=== PATIENT | female | born 1945 | race Caucasian/White ===

== ENCOUNTER 2016-09-12 11:55 | Inpatient (IN) | payer MEDICARE ==
--- NOTE | ~2016-09-12 | HP ---
Unit #: [id number] #: [id number] Patient: MICHAEL MORENO [id number] [address] [address] [id number] I MR#: [id number] NAME: MICHAEL MORENO ROOM: 62417 Age: 70 Sex: F Admission Date: 09/12/2016 : 1945 Attending Physician: Ami Carvajal M.D. Primary Care Physician: Primary Care Physician No HISTORY AND PHYSICAL CHIEF COMPLAINT Nausea, vomiting, and diarrhea. HISTORY OF PRESENT ILLNESS The patient is a 70-year-old female with the past medical history of diabetes, depression, hypertension, hyperlipidemia, deep vein thrombosis, chronic anticoagulation, breast cancer, who presented to the emergency room with the nausea and vomiting since Thursday. The patient stated the patient has been having nausea and vomiting with decreased oral intake since Thursday. The patient started to notice the bloody stool since yesterday and that made her to come to the emergency room. The patient was found to be in DKA with the sugars of 539 with a gap of 26. The patient had a CT of the abdomen and pelvis that showed the segmental inflammation at the junction of the hepatic flexure and transverse colon consistent with focal colitis. The patient has been admitted for the above reasons. The patient denies any fever or chills but complained of the nausea and denies any missing of the home medications. PAST MEDICAL HISTORY 1. History of diabetes with peripheral neuropathy. 2. Charcot foot, right, status post wuocf-yje-bjpq amputation. 3. Depression. 4. Hypertension. 5. Hyperlipidemia. 6. Deep vein thrombosis. 7. Breast cancer, status post lumpectomy and radiation treatment. PAST SURGICAL HISTORY 1. Left third toe amputation. 2. Breast lumpectomy. 3. Bilateral knee surgery. 4. Incision and drainage of the right foot. 5. Status post BKA of the right foot and the hysterectomy. HOME MEDICATIONS 1. Avalide. 2. Cymbalta. 3. Norvasc. 4. Lipitor. 5. Levemir. 6. NovoLog. ALLERGIES TIFFANIE inhibitors. Unit #: [id number] #: [id number] Patient: MICHAEL MORENO SOCIAL HISTORY The patient lives alone. No history of tobacco, alcohol or illicit drug abuse. CODE STATUS Her code status is FULL CODE. FAMILY HISTORY Notable for mother having diabetes. REVIEW OF SYSTEMS A 14-point review of systems performed and only pertinent positive findings are described above, remaining are negative. PHYSICAL EXAMINATION VITAL SIGNS: Temperature 97.5, pulse 120, respiratory rate 18, blood pressure 169/94, saturating 99% at room air. GENERAL: Patient is lying on the bed not in acute distress. HEENT: Atraumatic, normocephalic. Pupils equal, round, and reactive to light and accommodation. Dry mucous membrane. NECK: Supple. No JVD. LUNGS: Clear to auscultation bilaterally. No rhonchi, no wheezing. HEART: Regular rate and rhythm. ABDOMEN: Soft, positive bowel sounds. Minimal discomfort at the left lower quadrant. No rigidity, no guarding. EXTREMITIES: Status post right hdmdn-pks-ltun amputation. NEUROLOGIC: Alert, awake, oriented. DIAGNOSTIC STUDIES LABORATORY: Glucose 539, BUN 46, creatinine 1.6, sodium 128, potassium 4.2, chloride 92, bicarb 20, calcium 8.5, total protein 6.9, albumin 3.4, total bilirubin 0.9, AST 16, ALT 14, alkaline phosphatase 120. Lipase 22. INR 0.9. WBC 23, hemoglobin 13.9, hematocrit 43.4, platelets 362, neutrophils 91.9. UA shows trace leukocyte esterase, 2+ blood, 200-300 urine wbc's, 4+ urine bacteria. IMAGING: CT of the abdomen and pelvis shows focal colitis. ASSESSMENT AND PLAN 1. Diabetic ketoacidosis. 2. Sepsis. 3. Focal colitis. 4. Urinary tract infection. PLAN 1. Admit patient to inpatient with ICU. 2. Continue the DKA protocol. 3. IV antibiotics with Rocephin and Flagyl and sepsis protocol. 4. Continue with insulin drip. 5. Repeat labs again in the morning. 6. Further recommendations will follow as more lab results become available. Dictated by Ami Carvajal M.D. Unit #: [id number] #: [id number] Patient: MICHAEL MORENO ANABELLA/miranda TD: 09/12/2016 17:55 JOB #: [id number] HISTORY AND PHYSICAL X X HISTORY AND PHYSICAL
--- NOTE | ~2016-09-12 | CT4 ---
[facility] A Service of [facility] RADIOLOGY TEXT RESULTS PATIENT: MICHAEL MORENO LOCATION: CICCU2 CICCU2-12 : 46 UNIT #: [id number] AGE: [address]: PARTH PAN MD SEX: F ORDER DR: [id number] [facility] [address] [facility]. [place], [place] [address] [id number] I MR#: [id number] Acc #: [id number] NAME: MICHAEL MORENO : 1945 SEX: F STUDY DATE/TIME: 09/12/2016 14:40 UNIT: CEDOF ROOM: 67871 STUDY DESCRIPTION: CT Abd and Pelv Wo Cont Attending Physician: Parth Pan M.D. Ordering Physician: [facility] MEDICAL IMAGING REPORT This report is preliminary unless electronic signature is present EXAM CT abdomen and pelvis without contrast INDICATIONS Nausea, vomiting, diarrhea since 09/11/2016. TECHNIQUE This CT exam was performed with one or more of the following radiation dose reduction techniques: automatic exposure control, adjustment of mA and/or kV according to patient size, and iterative reconstruction. FINDINGS ABDOMEN WITHOUT CONTRAST: The included lung bases are clear. ABDOMEN WITH CONTRAST: The liver, spleen, kidneys and adrenal glands, pancreas, gallbladder unremarkable. There is a segment of abnormal thickening and mild surrounding inflammatory change in the hepatic flexure and proximal to mid-transverse colon. No evidence for abscess or obstruction. PELVIS WITHOUT CONTRAST: Previous hysterectomy. No pelvic mass or fluid. There is a small focus of air in the bladder. Correlate with recent manipulation. No aggressive appearing bone lesion. IMPRESSION 1. Segmental, mild inflammatory change involving the hepatic flexure and proximal to mid-transverse colon, most in keeping with focal colitis. Correlate with the patient's symptoms. 2. No acute findings seen elsewhere in the abdomen or pelvis. Dictated by... Delio Andrade M.D. [facility] A Service of [facility] RADIOLOGY TEXT RESULTS PATIENT: MICHAEL MORENO LOCATION: CICCU2 CICCU2-12 : 46 UNIT #: [id number] AGE: [address]: PARTH PAN MD SEX: F ORDER DR: THIS IS AN ELECTRONICALLY VERIFIED REPORT Delio Andrade M.D. at 09/13/2016 3:04 PM EED/pcl TD: 09/12/2016 17:34 JOB #: [id number] MEDICAL IMAGING REPORT COPY
--- NOTE | ~2016-09-12 | CO ---
Unit #: [id number] #: [id number] Patient: MICHAEL MORENO [id number] [address] [address] [id number] I MR#: [id number] NAME: MICHAEL MORENO ROOM: 228 Age: 70 Sex: F Admission Date: 09/12/2016 : 1945 Attending Physician: Daysi Rasmussen M.D. Primary Care Physician: Primary Care Physician No Consultation Date: 09/14/2016 CONSULTATION REPORT REASON FOR CONSULTATION Management of diabetes mellitus. HISTORY OF PRESENT ILLNESS A 70-year-old white female, who has history of type 2 diabetes mellitus and depression, who presented to the emergency room with nausea, abdominal pain, and vomiting. She is being treated currently for the acute colitis of the hepatic flexure and transverse colon. On her arrival, her blood sugars were very high. Her blood glucose level was above 500. She was also hyponatremic and she had mild acute kidney injury with creatinine of 1.6. She was started on insulin drip, which was subsequently discontinued and the patient was transferred to the floor with the subcu insulin. I am seeing the patient today. PAST MEDICAL HISTORY 1. Type 2 diabetes mellitus, which is poorly controlled. A1c is above 12%. Charcot foot. 2. History of post below-knee amputations, depression, hypertension, hyperlipidemia, DVT anticoagulation therapy. 3. History of diabetic peripheral neuropathy, history of breast cancer, history of breast lumpectomy and radiation treatment. PAST SURGICAL HISTORY Left third toe amputation, BKA, hysterectomy, breast surgery, bilateral knee surgeries. HOME MEDICATIONS List is reviewed. Levemir 40 units daily, NovoLog about 20 to 25 units each meal, Avalide, Cymbalta, Norvasc. ALLERGIES To TIFFANIE inhibitors. SOCIAL HISTORY The patient lives alone. No history of tobacco use or alcohol. FAMILY HISTORY Notable for diabetes in the mother. REVIEW OF SYSTEMS A 12-point review of systems completed and is unremarkable except as noted in HPI. The patient has been complaining of some diarrhea and nausea at this point. No abdominal pain. Unit #: [id number] #: [id number] Patient: MICHAEL MORENO PHYSICAL EXAMINATION GENERAL: She looks comfortable in no acute distress. VITAL SIGNS: Temperature 97.9, pulse 104, respirations 18, blood pressure 136/75. HEENT: EOMI. Pupils equally reactive to light. NECK: Supple. No thyromegaly noted. CHEST: Good air entry. CVS: Regular rhythm. No murmurs. ABDOMEN: Soft and nontender. Bowel sounds positive. EXTREMITIES: He has BKA. DIAGNOSTIC STUDIES LABORATORY RESULTS: Today, creatinine is 1.3, sodium 134, CO2 is 18. A1c 12.6. ASSESSMENT 1. Type 2 diabetes mellitus, poorly controlled. 2. Depression. 3. Acute colitis. PLAN We will increase the patient's Accu-Chek log reviewed. We will increase the Levemir to 25 units daily in the morning. Continue supplemental insulin as needed. The patient has not been eating much due to the nausea as the patient's p.o. intake, increase premeal insulin. Continue to follow the patient for further management. Dictated by... Latasha Salvador/sophia TD: 09/15/2016 02:36 JOB #: [id number] CONSULTATION REPORT X Neo Davison MD CONSULTATION REPORT
--- NOTE | ~2016-09-12 | CR63 ---
[facility] A Service of [facility] RADIOLOGY TEXT RESULTS PATIENT: MICHAEL MORENO LOCATION: [place] [address]-12 : [birth year] UNIT #: [id number] AGE: [address]: PARTH CARVAJAL MD SEX: F ORDER DR: [id number] [facility] [address] [facility]. [place], [place] [address] [id number] I MR#: [id number] Acc #: [id number] NAME: MICHAEL MORENO : 1945 SEX: F STUDY DATE/TIME: 09/12/2016 18:30 UNIT: [facility] ROOM: [facility] STUDY DESCRIPTION: CR Chest 2 View Attending Physician: Parth Carvajal M.D. Ordering Physician: Sam Lagunas M.D. MEDICAL IMAGING REPORT This report is preliminary unless electronic signature is present EXAM Chest x-ray 09/12/2016 HISTORY 70-year-old female in the ED complaining of 4-day history of congestion, nausea and vomiting. TECHNIQUE AP and lateral upright chest series. FINDINGS Heart size and pulmonary the heart size and pulmonary vascularity are normal. The lungs are expanded and clear. No visible pulmonary infiltrate or pleural effusion. IMPRESSION No active disease. Dictated by... Vince Olguin M.D. THIS IS AN ELECTRONICALLY VERIFIED REPORT Vince Olguin M.D. at 09/13/2016 3:01 PM RICHIE/adilene TD: 09/12/2016 23:49 JOB #: [id number] MEDICAL IMAGING REPORT COPY
--- NOTE | ~2016-09-12 | DS ---
Unit #: [id number] #: [id number] Patient: MICHAEL MORENO [id number] [address] [address] [id number] I MR#: [id number] NAME: MICHAEL MORENO ROOM: 228 Age: 70 Sex: F Admission Date: 09/12/2016 : 1945 Discharge Date: 09/15/2016 Attending Physician: Daysi Rasmussen M.D. Primary Care Physician: No Primary Care Physician DISCHARGE SUMMARY PRINCIPAL DIAGNOSIS 1. Diabetic ketoacidosis. 2. Acute kidney injury, prerenal. 3. Klebsiella pneumonia urinary tract infection for which the patient has completed antibiotics. 4. Sepsis secondary to colitis. 5. Hypokalemia. 6. Hypophosphatemia. 7. Chronic kidney disease stage 3 with baseline creatinine approximately 1.5. 8. Non-anion gap metabolic acidosis secondary to diarrhea. 9. Diabetes mellitus type 2. Insulin requiring and uncontrolled with hemoglobin A1c of 12.6. 10. Moderate protein malnutrition. 11. Diabetic peripheral neuropathy. 12. Depression. 13. Hyperlipidemia. 14. Prior history of DVT. 15. History of breast cancer, status post lumpectomy and radiation. 16. Iron deficiency anemia. CONSULTANTS Dr. Davison, endocrinology. DIAGNOSTIC DATA IMAGING: CT scan of the abdomen and pelvis without contrast on 09/12/2016 with mild inflammatory changes involving the hepatic flexure and proximal to mid transverse colon. Chest x-ray on 09/12/2016 with no acute findings. HISTORY/HOSPITAL COURSE Ms. Moreno is a very nice 70-year-old female who presented to the emergency department with intractable nausea, vomiting and diarrhea. Please refer to history and physical for further details. In the emergency department the patient was found to be in diabetic ketoacidosis with a blood sugar greater than 500 and anion gap of 26. CT scan of the abdomen and pelvis revealed colitis. Creatinine was also elevated upon presentation at 1.6. The patient was subsequently admitted. The patient was placed on diabetic ketoacidosis protocol and admitted to the ICU. After approximately 18-24 hours on the insulin drip the patient's diabetic ketoacidosis resolved and she was transitioned to subcutaneous insulin. Insulin has been adjusted by Dr. Davison and now Unit #: [id number] #: [id number] Patient: MICHAEL MORENO sugars are generally running in the 170s to 250 range. I am going to increase her Levemir slightly upon discharge and place her on a scheduled dose of NovoLog in addition to her sliding scale at home. We have discussed appropriate dosing. The patient has also received diabetic eduction during hospitalization and she admits her diet is the biggest culprit in her poor sugar control. In regard to the patient's colitis, she was placed on IV antibiotics. She did have positive fecal lactoferrin, but c-diff was negative. Her stools have significantly decreased and she will complete a course of antibiotics as noted. The patient did have a positive urine culture for Klebsiella pneumonia, but has completed three days of antibiotics. Given her urinary tract infection is asymptomatic I think this is appropriate treatment. The patient is now eating. Her nausea, vomiting and diarrhea have resolved. Of note, she has significant reflux and I am going to place her on PPI therapy upon discharge as well. DISCHARGE CONDITION Stable. DISPOSITION Discharge to home. DISCHARGE MEDICATIONS 1. NovoLog 3 units subcutaneous t.i.d. with meals, with associated sliding scale. 2. Levemir 30 units subcutaneously at bedtime. 3. Ferrous gluconate 324 mg daily. 4. Flagyl 500 mg p.o. t.i.d. for 8 days. 5. Protonix 40 mg p.o. daily. 6. Cymbalta 60 mg daily. 7. Norvasc 5 mg daily. 8. Lipitor 40 mg at bedtime. 9. Aspirin 81 mg p.o. daily. Of note, I have held Avalide/hydrochlorothiazide 300/12.5 mg at discharge, given blood pressure here has remained stable off the medication. This can be reinitiated as an outpatient if blood pressure increases. The patient ultimately will require TIFFANIE inhibitor or ARB in the future. DIET The patient is instructed to follow a constant carb, heart healthy diet. Again, she has received diabetic education. She will continue Accu-Cheks at least three times fasting at home, one in the morning fasting and then Accu-Cheks before two meals daily so that she can adjust her dose of NovoLog. ACTIVITY She can increase her activity as tolerated. She is to wear her boots on her lower extremity, which is chronic. FOLLOWUP The patient will follow up with her primary care physician in two weeks. And reevaluate blood pressure at that time with reinitiation of Avalide. Again, will require TIFFANIE or ARB for senior care. Unit #: [id number] #: [id number] Patient: MICHAEL MORENO Dictated by... Daysi Rasmussen M.D. KEH/elaine TD: 09/16/2016 13:03 JOB #: [id number] DISCHARGE SUMMARY X Daysi Rasmussen MD X DISCHARGE SUMMARY
--- NOTE | ~2016-09-12 | EKG ---
PATIENT: MICHAEL MORENO UNIT #: [id number] Ventricular Rate: 116 BPM Atrial Rate: 116 BPM P-R Interval: 172 ms QRS Duration: 78 ms Q-T Interval: 322 ms QTC Calculation(Bezet): 447 ms P [place]: 52 degrees Calculated R [place]: -13 degrees Calculated T [place]: 65 degrees Diagnosis Line: Sinus tachycardia with occasional Premature Diagnosis Line: ventricular complexes Diagnosis Line: Poor R wave progression questionable lead position Diagnosis Line: or body habitus Diagnosis Line: Borderline ECG Diagnosis Line: When compared with ECG of 04-JAN-2016 19:18, Diagnosis Line: Premature ventricular complexes are now Present Diagnosis Line: Premature atrial complexes are no longer Present Diagnosis Line: Nonspecific T wave abnormality now evident in Diagnosis Line: Lateral leads Diagnosis Line: Confirmed by MEHUL ETIENNE MD ([id number]) on Diagnosis Line: 09/14/2016 10:22:09 PM INTERPRETING MD: BELLO
[2016-09-12 11:49] LABS: URINE SOURCE CLEAN CATCH
[~2016-09-12 11:55] MED LIST: ACETAMINOPHEN PO; AMBIEN PO; ANTIBIOTICS; AROMASIN25 MG PO; ATARAX PO; AUGMENTIN PO; AVALIDE 300-12.1 TAB PO; AVALIDE PO; AVANDIA PO; BENADRYL25 M1 PO; CEROVITE SENIO1 EACH PO; CIPRO PO; CYMBALTA30 M1 PO; DIFLUCAN PO; DOCUSATE SODIU100 MG PO; EFFEXOR XR PO; EFFEXOR75 MG PO; ELIQUIS5 MG PO; FLORASTOR250 M1 PO; HUMALOG100 U/ML; JUVEN PACKET1 EACH PO; LANTUS100 U/ML SUBQ; LEVAMIR INSULIN SQ; LEVEMIR100 UNITS/ SUBQ; LEXAPRO PO; LOMOTIL TABLET1 TAB PO; LORTAB 7.5-5001 TAB PO; LOTREL 10-20 MG1 CAP PO; LOTREL 5/20 MG1 CAP PO; LOTREL PO; MEDROL PO; METFORMIN PO; METOPROLOL TAR25 MG PO; MILK OF MAGNESIA PO; NORCO1 TAB 10/3 PO; NORVASC PO; NOVOLOG100 U/M2; NOVOLOG100 U/ML; NOVOLOG100 U/ML SUBQ; PERCOCET PO; PHENERGAN PO; ROCEPHIN2 G/VIAL IV; SIMVASTATIN40 MG PO; TRILIPIX PO; UREA 10% TOP; ZOCOR PO; ZOCOR5 MG PO; ZOFRAN ODT4 MG PO; ZOFRAN PO
[2016-09-12 11:56] LABS: URINE APPEARANCE CLOUDY; URINE BILIRUBIN NEG (NEG); URINE BLOOD 2+ (NEG); URINE COLOR YELLOW; URINE GLUCOSE >1000 MG/DL (NEG); URINE KETONE 1+ (NEG); URINE LEUKOCYTE ESTERASE TRACE (NEG); URINE NITRATE NEG (NEG); URINE PROTEIN 3+ (NEG); URINE SPECIFIC GRAVITY 1.032 (1.003-1.035); URINE UROBILINOGEN 0.2 MG/DL (NEG)
[2016-09-12 11:58] LABS: CULTURE INDICATED? YES; U HYALINE CASTS AUWI 0-2 /[LPF]; URINE BACTERIA AUWI 4+ (NEGATIVE); URINE SQUAMOUS EPITHELIAL CELL FEW /[HPF]; UWBCS1 AUWI 200-300 (0-5)
[2016-09-12 12:13] LABS: URINE YEAST PRESENT
[2016-09-12 12:53] LABS: BASOPHIL% 0.2 % (0-2.5); HEMATOCRIT 43.4 % (35.0-45.0); HEMOGLOBIN 13.9 gm/dL (12.0-16.0); LYMPHOCYTE# 1.3 X10e3 (1.0-3.5); LYMPHOCYTE% 5.5 % (17.0-45.0); MEAN CORPUSCULAR HEMOGLOBIN 25.7 PG (28-34); MEAN CORPUSCULAR HGB CONC 32.1 g/dL (30-36); MEAN PLATELET VOLUME 8.1 FL (6.5-11.5); MONOCYTE# 0.8 X10e3 (0-1.0); MONOCYTE% 3.4 % (3.0-12.0); NEUTROPHIL# 20.9 X10e3 (1.5-7.1); NEUTROPHIL% 90.9 % (40-75); PLATELET COUNT 362 X10e3 (140-420); RED BLOOD COUNT 5.42 X10e (3.90-5.30); RED CELL DISTRIBUTION WIDTH 15.7 % (11.0-15.5)
[2016-09-12 12:54] LABS: DIFF IND YES
[2016-09-12 13:01] LABS: INR 0.9; PROTHROMBIN TIME (PATIENT) 9.9 SECONDS (9.6-11.5)
[2016-09-12 13:29] LABS: PLATELET ESTIMATE NORMAL (NORMAL); RBC NORMAL YES
[2016-09-12 13:41] LABS: ALBUMIN SERUM 3.4 g/dL (3.5-5.0); BILIRUBIN, DIRECT 0.1 mg/dL (0.0-0.2); BILIRUBIN,INDIRECT 0.8 mg/dL (0.0-0.9); BILIRUBIN,TOTAL 0.9 mg/dL (0.2-2.0); BUN/CREATININE RATIO 28.75; CALCIUM SERUM 8.5 mg/dL (8.4-10.2); CREATININE SERUM 1.6 mg/dL (0.6-1.4); POTASSIUM 4.2 mmol/L (3.5-5.1); PROTEIN TOTAL SERUM 6.9 g/dL (6.0-8.3)
[2016-09-12 17:21] LABS: ARTERIAL BLD GAS O2 SATURATION 95.3 % (90.0-100.0); ARTERIAL BLOOD GAS CARBOXY HB 0.8 %sat (0.0-9.0); ARTERIAL BLOOD GAS MET HB 0.8 %sat (0.0-2.0); ARTERIAL BLOOD GAS PCO2 30.6 mmHg (35.0-45.0); ARTERIAL BLOOD GAS PO2 83.8 mmHg (80.0-100); ARTERIAL BLOOD GAS pH 7.379 (7.350-7.450)
[2016-09-12 17:22] LABS: ARTERIAL BLOOD GAS ALLEN TEST NORMAL; ARTERIAL BLOOD GAS ART SITE LEFT RADIAL; ARTERIAL DRAW? YES
[2016-09-12 18:02] LABS: BETA HYDROXYBUTYRATE 3.1 MMOL/L (0.02-0.27); BUN/CREATININE RATIO 32.85; CREATININE SERUM 1.4 mg/dL (0.6-1.4); GLOM FILT RATE Estimated 39.6 mL/min (>60); POTASSIUM 3.6 mmol/L (3.5-5.1)
[2016-09-12] MEDS ORDERED: AVALIDE 300-12.1 TAB PO (21:43)
[2016-09-12] MEDS ORDERED: DULOXETINE HCL60 MG PO (21:43)
[2016-09-12] MEDS ORDERED: NORVASC PO (21:44)
[2016-09-12] MEDS ORDERED: LIPITOR40 MG PO (21:44)
[2016-09-12] MEDS ORDERED: LEVEMIR100 UNITS/ SUBQ (21:45)
[2016-09-12] MEDS ORDERED: NOVOLOG100 U/ML (21:47)
[2016-09-12 22:05] LABS: BUN/CREATININE RATIO 33.57; CALCIUM SERUM 7.7 mg/dL (8.4-10.2); CREATININE SERUM 1.4 mg/dL (0.6-1.4); GLOM FILT RATE Estimated 39.6 mL/min (>60); POTASSIUM 3.5 mmol/L (3.5-5.1)
[2016-09-13 03:02] LABS: BUN/CREATININE RATIO 32.3; CALCIUM SERUM 7.7 mg/dL (8.4-10.2); CREATININE SERUM 1.3 mg/dL (0.6-1.4); GLOM FILT RATE Estimated 43.2 mL/min (>60); POTASSIUM 3.9 mmol/L (3.5-5.1)
[2016-09-13 04:37] LABS: ARTERIAL BLD GAS O2 SATURATION 97.9 % (90.0-100.0); ARTERIAL BLOOD GAS CARBOXY HB 0.4 %sat (0.0-9.0); ARTERIAL BLOOD GAS HCO3 21.6 mmol/L; ARTERIAL BLOOD GAS MET HB 0.4 %sat (0.0-2.0); ARTERIAL BLOOD GAS PCO2 33.7 mmHg (35.0-45.0); ARTERIAL BLOOD GAS pH 7.415 (7.350-7.450)
[2016-09-13 04:58] LABS: ARTERIAL BLOOD GAS ALLEN TEST NORMAL; ARTERIAL BLOOD GAS ART SITE RIGHT RADIAL; ARTERIAL DRAW? YES
[2016-09-13 04:59] LABS: ARTERIAL BLOOD GAS DELIVERY NASAL CANNULA
[2016-09-13 06:32] LABS: BASOPHIL% 0.1 % (0-2.5); DIFF IND NO; EOSINOPHIL% 0.2 % (0.0-7.0); HEMATOCRIT 39.6 % (35.0-45.0); HEMOGLOBIN 12.9 gm/dL (12.0-16.0); LYMPHOCYTE# 1.6 X10e3 (1.0-3.5); LYMPHOCYTE% 8.7 % (17.0-45.0); MEAN CELL VOLUME 78.6 FL (83-96); MEAN CORPUSCULAR HEMOGLOBIN 25.7 PG (28-34); MEAN CORPUSCULAR HGB CONC 32.7 g/dL (30-36); MONOCYTE# 1.4 X10e3 (0-1.0); MONOCYTE% 7.8 % (3.0-12.0); NEUTROPHIL# 15.5 X10e3 (1.5-7.1); NEUTROPHIL% 83.2 % (40-75); PLATELET COUNT 329 X10e3 (140-420); RED BLOOD COUNT 5.03 X10e (3.90-5.30); RED CELL DISTRIBUTION WIDTH 16.3 % (11.0-15.5); WHITE BLOOD COUNT 18.6 X10e3 (4.0-10.5)
[2016-09-13 07:07] LABS: ALBUMIN SERUM 2.6 g/dL (3.5-5.0); BILIRUBIN,TOTAL 0.5 mg/dL (0.2-2.0); BUN/CREATININE RATIO 34.16; CALCIUM SERUM 8.1 mg/dL (8.4-10.2); CREATININE SERUM 1.2 mg/dL (0.6-1.4); GLOM FILT RATE Estimated 47.3 mL/min (>60); POTASSIUM 3.9 mmol/L (3.5-5.1)
[2016-09-13 07:53] LABS: BUN/CREATININE RATIO 31.53; CALCIUM SERUM 7.5 mg/dL (8.4-10.2); CREATININE SERUM 1.3 mg/dL (0.6-1.4); GLOM FILT RATE Estimated 43.2 mL/min (>60); POTASSIUM 3.3 mmol/L (3.5-5.1)
[2016-09-13 14:04] LABS: BUN/CREATININE RATIO 27.85; CALCIUM SERUM 7.7 mg/dL (8.4-10.2); CREATININE SERUM 1.4 mg/dL (0.6-1.4); GLOM FILT RATE Estimated 39.6 mL/min (>60); POTASSIUM 4.3 mmol/L (3.5-5.1)
[2016-09-14 05:09] LABS: BASOPHIL# 0.1 X10e3 (0-0.3); BASOPHIL% 0.8 % (0-2.5); EOSINOPHIL# 0.1 X10e3 (0-0.7); EOSINOPHIL% 1.1 % (0.0-7.0); HEMATOCRIT 38.7 % (35.0-45.0); HEMOGLOBIN 12.5 gm/dL (12.0-16.0); LYMPHOCYTE# 1.3 X10e3 (1.0-3.5); LYMPHOCYTE% 10.3 % (17.0-45.0); MEAN CELL VOLUME 79.4 FL (83-96); MEAN CORPUSCULAR HEMOGLOBIN 25.7 PG (28-34); MEAN CORPUSCULAR HGB CONC 32.4 g/dL (30-36); MEAN PLATELET VOLUME 7.8 FL (6.5-11.5); MONOCYTE# 0.9 X10e3 (0-1.0); MONOCYTE% 7.1 % (3.0-12.0); NEUTROPHIL# 10.1 X10e3 (1.5-7.1); NEUTROPHIL% 80.7 % (40-75); PLATELET COUNT 278 X10e3 (140-420); RED BLOOD COUNT 4.87 X10e (3.90-5.30); RED CELL DISTRIBUTION WIDTH 15.9 % (11.0-15.5); WHITE BLOOD COUNT 12.6 X10e3 (4.0-10.5)
[2016-09-14 05:10] LABS: DIFF IND NO
[2016-09-14 06:22] LABS: BUN/CREATININE RATIO 25.38; CREATININE SERUM 1.3 mg/dL (0.6-1.4); GLOM FILT RATE Estimated 43.2 mL/min (>60); PHOSPHOROUS 3.1 mg/dL (2.5-4.6); POTASSIUM 4.1 mmol/L (3.5-5.1)
[2016-09-15 05:46] LABS: HEMATOCRIT 38.2 % (35.0-45.0); HEMOGLOBIN 12.6 gm/dL (12.0-16.0); MEAN CELL VOLUME 79.2 FL (83-96); MEAN CORPUSCULAR HEMOGLOBIN 26.1 PG (28-34); MEAN CORPUSCULAR HGB CONC 32.9 g/dL (30-36); MEAN PLATELET VOLUME 7.8 FL (6.5-11.5); RED BLOOD COUNT 4.82 X10e (3.90-5.30); RED CELL DISTRIBUTION WIDTH 15.9 % (11.0-15.5)
[2016-09-15 06:27] LABS: CALCIUM SERUM 8.5 mg/dL (8.4-10.2); CREATININE SERUM 1.5 mg/dL (0.6-1.4); GLOM FILT RATE Estimated 36.6 mL/min (>60); POTASSIUM 4.1 mmol/L (3.5-5.1)
[2016-09-15] MEDS ORDERED: FERROUS GLUCON324 MG PO (11:41)
[2016-09-15] MEDS ORDERED: PROTONIX PO (11:42)
[2016-09-15] MEDS ORDERED: FLAGYL PO (11:42)
[2016-09-15] MEDS ORDERED: LO-DOSE ASPIRIN81 M1 PO (11:43)
[2016-09-15] MEDS ORDERED: NOVOLOG100 U/ML SUBQ (11:45)
== END 2016-09-15 14:03 | disposition home or self-care (01) | DRG 871 ==
LOC: CED 11:55 → CEDOF 16:20 → CICCU2 21:17 → C2A 09-13 19:15
PROVIDERS: Emergency Medicine; Internal Medicine
DX: A41.9 Sepsis, unspecified organism (principal); E13.10 Other specified diabetes mellitus with ketoacidosis without coma; N17.9 Acute kidney failure, unspecified; E44.0 Moderate protein-calorie malnutrition; N39.0 Urinary tract infection, site not specified; A09 Infectious gastroenteritis and colitis, unspecified; B96.1 Klebsiella pneumoniae [K. pneumoniae] as the cause of diseases classified elsewhere; E87.6 Hypokalemia; E83.39 Other disorders of phosphorus metabolism; I12.9 Hypertensive chronic kidney disease with stage 1 through stage 4 chronic kidney disease, or unspecified chronic kidney disease; N18.3 Chronic kidney disease, stage 3 (moderate); Z79.4 Long term (current) use of insulin; F32.9 Major depressive disorder, single episode, unspecified; E78.5 Hyperlipidemia, unspecified; Z86.718 Personal history of other venous thrombosis and embolism; Z85.3 Personal history of malignant neoplasm of breast; D50.9 Iron deficiency anemia, unspecified; Z89.512 Acquired absence of left leg below knee; Z90.710 Acquired absence of both cervix and uterus; Z83.3 Family history of diabetes mellitus; G62.9 Polyneuropathy, unspecified
CPT/HCPCS: 36415; 36600; 71020; 74176; 80048; 80053; 80076; 81003; 82010; 82150; 82803; 82947; 83036; 83605; 83630; 83690; 83735; 84100; 85025; 85027; 85610; 85730; 87040; 87086; 87088; 87186; 87493; 93005; 94760; 96361; 96374; 96375; 99291; J0360; J0696; J1650; J1815; J2270; J2405